=== PATIENT | female | born 1945 | race Caucasian/White ===

== ENCOUNTER 2021-08-15 07:48 | Day surgery (SDC) | payer OTHER ==
[~2021-08-15] VITALS: Ht 157.5 cm; Wt 49.0 kg
[~2021-08-15 07:48] MED LIST: DESL5; ENOX30I SC; HYDACE10B PO; HYDACE5325; LEVSOD75 PO; Multivitamin1 EAC1 PO; Norco 10-325 T1 EACH PO; OXYACE5T PO; Salmon Oil 1,01 EACH PO; TURMERIC500 MG PO
[2021-08-15] MEDS ORDERED: Aspir 8181 MG PO (08:03)
== END 2021-08-15 09:25 | disposition home or self-care (01) ==
LOC: ORSCSDS 07:48
PROVIDERS: Ophthalmology
PROC: 08RJ3JZ Replacement of Right Lens with Synthetic Substitute, Percutaneous Approach (ICD-10-PCS; principal; 2021-08-15 09:00)
DX: H25.11 Age-related nuclear cataract, right eye (principal); B19.20 Unspecified viral hepatitis C without hepatic coma; Z79.82 Long term (current) use of aspirin; Z79.899 Other long term (current) drug therapy
CPT/HCPCS: J2001; J2250; J3010; J3301; J7040; V2632

== ENCOUNTER 2021-08-29 06:46 | Day surgery (SDC) | payer OTHER ==
[~2021-08-29] VITALS: Ht 157.5 cm; Wt 49.3 kg
[~2021-08-29 06:46] MED LIST changes: +Aspir 8181 MG PO
[2021-08-29] MEDS ORDERED: LEVSOD150 PO (07:02)
== END 2021-08-29 08:06 | disposition home or self-care (01) ==
LOC: ORSCSDS 06:46
PROVIDERS: Ophthalmology
PROC: 08RK3JZ Replacement of Left Lens with Synthetic Substitute, Percutaneous Approach (ICD-10-PCS; principal; 2021-08-29 08:00)
DX: H25.12 Age-related nuclear cataract, left eye (principal); E03.9 Hypothyroidism, unspecified; B19.20 Unspecified viral hepatitis C without hepatic coma; Z79.82 Long term (current) use of aspirin
CPT/HCPCS: J2001; J2250; J3010; J3301; J7040; V2632

== ENCOUNTER 2022-08-26 07:20 | Day surgery (SDC) | payer OTHER ==
[~2022-08-26] VITALS: Ht 154.9 cm; Wt 49.6 kg
[~2022-08-26 07:20] MED LIST changes: +LEVSOD150 PO
--- NOTE | 2022-08-26 09:51 | NUR ---
08/26/22 0951 LAITH JIMENEZ 0.1MG OF EPI ADDED TO 20MLS OF ROPIVACAINE 0.5% TO CREATE A LOCAL SOLUTION OF ROPIVACAINE 0.5% WITH EPI 1:200,000. LOCAL POURED ONTO STERILE FIELD FOR USE DURING CASE.
--- NOTE | 2022-08-26 11:59 | NUR ---
08/26/22 1159 Olman Aparicio PT HAS BEEN GIVEN TOTAL OF 150 MCG OF FENTALY IV AND OXYCODONE 5/325MG FOR PAIN 03/17 AT THIS [facility]
== END 2022-08-26 12:47 | disposition home or self-care (01) ==
LOC: ORSCSDS 07:20
PROVIDERS: Orthopaedic Surgery
PROC: 0PSL04Z Reposition Left Ulna with Internal Fixation Device, Open Approach (ICD-10-PCS; principal; 2022-08-26 08:45)
DX: S52.032A Displaced fracture of olecranon process with intraarticular extension of left ulna, initial encounter for closed fracture (principal); E03.9 Hypothyroidism, unspecified; Z79.899 Other long term (current) drug therapy; Z79.82 Long term (current) use of aspirin
CPT/HCPCS: A9270; C1713; J0171; J0690; J1100; J2250; J2370; J2405; J2704; J2795; J3010; J7120